=== PATIENT | male | born 1960 | race Caucasian/White ===

== ENCOUNTER 2024-11-30 05:51 | Day surgery (SDC) | payer BC ==
[2024-11-29 08:47] VITALS: BMI 27.3
[2024-11-30] MEDS ORDERED: Lidocaine 1% PF 5 ML VIAL ONE (06:30)
[2024-11-30] MEDS ORDERED: PROPOFOL 40 ML ONE (06:30)
[2024-11-30] MEDS ORDERED: Rocuronium Bromide 10 MG/ML (10ML VIAL) ONE (06:30)
[2024-11-30] MEDS ORDERED: Ondansetron PF 4 MG/2 ML Vial ONE (06:30)
[2024-11-30] MEDS ORDERED: SUGAMMADEX SODIUM 200 MG/2 ML VIAL ONE (06:30)
[2024-11-30] MEDS ORDERED: Lidocaine 1% w/Epinephrine 1:200K 30 ML VIAL ONE (06:33)
[2024-11-30] MEDS ORDERED: CEFAZOLIN 2 GM VIAL ONE (06:56)
[2024-11-30] MEDS ORDERED: Tranexamic Acid 1,000 MG/10 ML VIAL ONE (07:41)
[2024-11-30 07:46] LABS: Anion Gap 15 mmol/L (10-20); BUN (Urea Nitrogen) 13 mg/dL (8.4-25.7); Calc. Creatinine Clearance 88 mL/min (70-130); Calcium 8.9 mg/dL (7.8-10.44); Carbon Dioxide 24 mmol/L (23-31); Chloride 104 mmol/L (98-107); Glucose 132 mg/dL (80-115); Potassium 4.1 mmol/L (3.5-5.1); Sodium 139 mmol/L (136-145)
[2024-11-30] MEDS ORDERED: Glycopyrrolate 0.2 MG/ML 5 ML SYRINGE ONE (08:35)
[2024-11-30] MEDS ORDERED: oFLOXacin 0.3% Opth 5 ML BOT ONE ×2 (09:36→09:38)
[2024-11-30] MEDS ORDERED: HYDROcodone/Acetaminophen 5/325 mg Tablet ONE (12:51)
== END 2024-11-30 12:55 | disposition home or self-care (01) ==
LOC: CSHSDC 05:51
PROVIDERS: ATTEND Otolaryngology Plastic Surgery within the Head & Neck
DX: H90.3 Sensorineural hearing loss, bilateral (principal); I10 Essential (primary) hypertension; E11.9 Type 2 diabetes mellitus without complications; Z79.84 Long term (current) use of oral hypoglycemic drugs; Z79.899 Other long term (current) drug therapy; Z96.9 Presence of functional implant, unspecified
CPT/HCPCS: 36416; 70250; 80048; C1713; J0169; J1100; J1580; J2405; J2704; J3010; L8614; Q0162